=== PATIENT | female | born 1970 | race Two or more races ===

== ENCOUNTER 2020-11-04 11:28 | Emergency (ER) | payer SELFPAY ==
[~2020-11-04] VITALS: Ht 162.6 cm; Wt 63.3 kg
[2020-11-04 12:07] LABS: BILIRUBIN,URINE NEGATIVE (NEG); CLARITY,URINE CLOUDY; COLOR,URINE YELLOW; NITRITE,URINE NEGATIVE (NEG); PROTEIN,URINE NEGATIVE (NEG-TRACE); UROBILINOGEN,URINE 0.2 mg/dL (0.2 mg/dL)
[2020-11-04 12:10] LABS: BASO # 0.1 x10^3/uL (0.0-0.2); BASO % 1 % (0-3); EOS # 0.1 x10^3/uL (0.0-0.7); EOS % 2 % (0-3); HEMATOCRIT 33.5 % (36.0-47.0); HEMOGLOBIN 10.7 g/dL (12.0-15.5); LYMPH # 2.2 x10^3/uL (1.0-4.8); LYMPH % 26 % (24-48); MEAN CORPUSCULAR HEMOGLOBIN 22 pg (25-35); MEAN CORPUSCULAR HGB CONC 32 g/dL (31-37); MEAN CORPUSCULAR VOLUME 70 fL (79-100); MONO # 0.4 x10^3/uL (0.0-1.1); MONO % 5 % (0-9); NEUT # 5.8 x10^3/uL (1.8-7.7); NEUT % 67 % (31-73); PLATELET COUNT 440 x10^3/uL (140-400); RED BLOOD COUNT 4.79 x10^6/uL (3.50-5.40); RED CELL DISTRIBUTION WIDTH 17.1 % (11.5-14.5); WHITE BLOOD COUNT 8.7 x10^3/uL (4.0-11.0)
[2020-11-04] MEDS ORDERED: ONDANSETRON PF 4 MG/2 ML VIAL. IVP ONE (12:15)
[2020-11-04] MEDS ORDERED: FAMOTIDINE 20 MG/2 ML VIAL IVP ONE (12:15)
[2020-11-04] MEDS ORDERED: fentaNYL PF VIAL 100 MCG/2 ML VIAL IVP ONE ×2 (12:15→14:00)
[2020-11-04] MEDS ORDERED: IV NORMAL SALINE 1000ML BAG 1,000 ML IV ONE (12:15)
[2020-11-04 12:16] LABS: CALCIUM 9.4 mg/dL (8.5-10.1); CREATININE 0.9 mg/dL (0.6-1.0); GFR 66.5; POTASSIUM 4.1 mmol/L (3.5-5.1)
[2020-11-04 12:22] LABS: ALBUMIN 3.9 g/dL (3.4-5.0); ALBUMIN/GLOBULIN RATIO 0.9 (1.0-1.7); TOTAL BILIRUBIN 0.4 mg/dL (0.2-1.0); TOTAL PROTEIN 8.2 g/dL (6.4-8.2)
[2020-11-04 12:24] LABS: BACTERIA,URINE MODERATE /HPF (0-FEW); RBC,URINE 0 /HPF (0-2); WBC,URINE OCC /HPF (0-4)
[2020-11-04 13:10] LABS: PLT ESTIMATE INCREASED (ADEQUATE)
[2020-11-04 13:12] LABS: ANISOCYTOSIS SLIGHT; HYPOCHROMIA MOD; MICROCYTOSIS MOD; OVALOCYTES PRESENT
--- NOTE | 2020-11-04 13:14 | RAD ---
INDICATION : Reason: abd pain / Spl. Instructions: / History: COMPARISON: None TECHNIQUE: Multiple ultrasound images obtained through the abdomen in grayscale and color. FINDINGS: Liver: Echogenic appearance. Portions not well seen secondary to overlying structures obscuring. Gallbladder: There is a shadowing region at the expected location of the gallbladder. IVC: Partially distended at level of liver. Common Bile Duct: Not dilated. Pancreas: Largely obscured by bowel gas. Right Kidney: No hydronephrosis. Portion obscured by bowel gas. IMPRESSION: * No common bile duct dilation. * Liver is echogenic. Nonspecific but can be seen with fatty infiltration. * The patient reports a history of cholecystectomy. At the expected location of the gallbladder ther e is a shadowing region seen. This obscures the area and can be secondary to a loop of bowel with air in the lumen obscuring but a gallbladder with stones within could also have this ultrasound appearan ce. If additional clarification is desired CT could BE obtained to assess whether the patient has a g allbladder or not. Electronically signed by: Melquiades Johns MD (11/04/2020 1:11 PM) [id number]
[2020-11-04] MEDS ORDERED: CONTRAST GIVEN. MC PRN (13:30)
[2020-11-04] MEDS ORDERED: IOHEXOL 300 MG/ML 100ML VIAL. IV ONE (13:30)
--- NOTE | 2020-11-04 13:52 | RAD ---
INDICATION: Reason: abd pain / Spl. Instructions: DIFFICULTY HOLDING STILL , [id number] 75ml / History: . COMPARISON: Ultrasound from earlier same day TECHNIQUE: Axial CT images obtained through the abdomen and pelvis with contrast. One or more of the following individualized dose reduction techniques were utilized for this examinat ion: 1. Automated exposure control; 2. Adjustment of the mA and/or kV according to patient size; 3 . Use of iterative reconstruction technique. FINDINGS: Postcholecystectomy changes. Abdominal aorta is not aneurysmal. Prominent epicardial fat. Liver appears mildly low density. Nonspecific but can be seen with fatty infiltration. No peripancreatic fluid collection. Spleen is unremarkable. No left-sided hydronephrosis. Urinary bladder is well distended at time of exam. Uterus is visualized. No right-sided hydronephrosis. Appendix is not well seen No dilated loops of bowel to suggest obstruction. Sclerosis at sacroiliac joints which could be from degenerative changes or chronic sacroiliitis. Mild scoliotic curvature the spine as well as degenerative changes. 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 IMPRESSION: * No evidence of bowel obstruction. * Postcholecystectomy changes. The shadowing region seen on CT likely corresponds to air within the duodenum. * Urinary bladder is distended at time of exam which could be secondary to the patient not urinating recently but would correlate with symptoms to ensure that there is not a pathologic cause such as pa rtial bladder outlet obstruction Electronically signed by: Melquiades Johns MD (11/04/2020 1:50 PM) [id number]
[2020-11-04] MEDS ORDERED: LIDO:MAALOX 1:1 20 ML SINGLE DOSE. SWSW ONE (14:00)
[2020-11-04] MEDS ORDERED: PROCHLORPERAZINE 10 MG/2 ML VIAL. IV ONE (14:00)
[2020-11-04 14:30] LABS: AMPHETAMINE/METHAMPHETAMINE NEG (NEG); BARBITURATES NEG (NEG); BENZODIAZEPINES NEG (NEG); CANNABINOIDS NEG (NEG); COCAINE NEG (NEG); METHADONE NEG (NEG); OPIATES NEG (NEG); PHENCYCLIDINE NEG (NEG)
[2020-11-04 15:35] VITALS: BP 106/61
[2020-11-04] MEDS ORDERED: FAMO-63 PO (15:37)
[2020-11-04] MEDS ORDERED: DICY20TA3 PO (15:37)
--- NOTE | 2020-11-04 15:38 | PHYS DOC ---
Past Medical History Past Medical History: No Pertinent History Past Surgical History: Cholecystectomy, Smoking Status: Never Smoker Alcohol Use: None General Adult EDM: Chief Complaint: ABDOMINAL PAIN HPI: HPI: Patient is a 50 year old female who presents to the ED today complaining of 10 out of 10 generalized chronic abdominal pain that got worse in the last 2 days. Patient denies any nausea, vomiting. Denies anything specifically exacerbating or relieving her symptoms. She states the only surgery she has had was C- section. Patient reports being seen at [facility] today, labs obtained and she was sent to the ED. Review of Systems: Review of Systems: Constitutional: Denies fever or chills. [] Eyes: Denies change in visual acuity. [] HENT: Denies nasal congestion or sore throat. [] Respiratory: Denies cough or shortness of breath. [] Cardiovascular: Denies chest pain or edema. [] GI: Reports abdominal pain, denies nausea, vomiting, bloody stools or diarrhea. [] : Denies dysuria. [] Musculoskeletal: Denies back pain or joint pain. [] Integument: Denies rash. [] Neurologic: Denies headache, focal weakness or sensory changes. [] Psychiatric: Denies depression or anxiety. [] Heart Score: C/O Chest Pain: N/A Risk Factors: Risk Factors: DM, Current or recent (<one month) smoker, HTN, HLP, family history of CAD, obesity. Risk Scores: Score 0 - 3: 2.5% MACE over next 6 weeks - Discharge Home Score 4 - 6: 20.3% MACE over next 6 weeks - Admit for Clinical Observation Score 7 - 10: 72.7% MACE over next 6 weeks - Early Invasive Strategies Current Medications: Current Medications Medications (Trade) Dose Ordered Sig/Regis Start Time Stop Time Status Last Admin Dose Admin Famotidine (Pepcid Vial) 20 mg 1X ONCE 11/04/20 12:15 11/04/20 12:16 DC 11/04/20 12:25 20 MG Fentanyl Citrate (Fentanyl 2ml Vial) 50 mcg 1X ONCE 11/04/20 14:00 11/04/20 14:01 DC 11/04/20 13:57 50 MCG Info (CONTRAST GIVEN -- Rx MONITORING) 1 each PRN DAILY PRN 11/04/20 13:30 11/06/20 13:29 Iohexol (Omnipaque 300 Mg/ml) 75 ml 1X ONCE 11/04/20 13:30 11/04/20 13:31 DC 11/04/20 13:32 75 ML Multi-Ingredient Mouthwash/Gargle (Gi Cocktail) 20 ml 1X ONCE 11/04/20 14:00 11/04/20 14:01 DC 11/04/20 14:11 20 ML Ondansetron HCl (Zofran) 4 mg 1X ONCE 11/04/20 12:15 11/04/20 12:16 DC 11/04/20 12:25 4 MG Prochlorperazine Edisylate (Compazine) 10 mg 1X ONCE 11/04/20 14:00 11/04/20 14:01 DC 11/04/20 13:57 10 MG Sodium Chloride 1,000 ml @ 1,000 mls/hr 1X ONCE 11/04/20 12:15 11/04/20 13:14 DC 11/04/20 12:25 1,000 MLS/HR Allergies: Allergies: Allergies Coded Allergies Type Severity Reaction Last Updated Verified No Known Drug Allergies 11/04/20 No Physical Exam: PE: Constitutional: Well developed, well nourished, no acute distress, non-toxic appearance. [] HENT: Normocephalic, atraumatic, bilateral external ears normal, oropharynx moist, no oral exudates, nose normal. [] Eyes: PERRLA, EOMI, conjunctiva normal, no discharge. [] Neck: Normal range of motion, no tenderness, supple, no stridor. [] Cardiovascular:Heart rate regular rhythm, no murmur [] Lungs & Thorax: Bilateral breath sounds clear to auscultation [] Abdomen: Rounded abdomen. Bowel sounds normal, soft, diffuse tenderness throughout the abdomen with worse pain at the epigastric region, no masses, no pulsatile masses. [] Skin: Warm, dry, no erythema, no rash. [] Back: No tenderness, no CVA tenderness. [] Extremities: No tenderness, no cyanosis, no clubbing, ROM intact, no edema. [] Neurologic: Alert and oriented X 3, normal motor function, normal sensory function, no focal deficits noted. [] Psychologic: Affect normal, judgement normal, mood normal. [] Current Patient Data: Labs: Laboratory Tests Test 11/04/20 11:45 11/04/20 11:49 11/04/20 11:54 Urine Collection Type Unknown Urine Color Yellow Urine Clarity Cloudy Urine pH 6.0 (<5.0-8.0) Urine Specific [place] 1.010 (1.000-1.030) Urine Protein Negative mg/dL (NEG-TRACE) Urine Glucose (UA) Negative mg/dL (NEG) Urine Ketones (Stick) Negative mg/dL (NEG) Urine Blood Negative (NEG) Urine Nitrite Negative (NEG) Urine Bilirubin Negative (NEG) Urine Urobilinogen Dipstick 0.2 mg/dL (0.2 mg/dL) Urine Leukocyte Esterase Negative (NEG) Urine RBC 0 /HPF (0-2) Urine WBC Occ /HPF (0-4) Urine Squamous Epithelial Cells Mod /LPF Urine Bacteria Moderate /HPF (0-FEW) Urine Opiates Screen Neg (NEG) Urine Methadone Screen Neg (NEG) Urine Barbiturates Neg (NEG) Urine Phencyclidine Screen Neg (NEG) Urine Amphetamine/Methamphetamine Neg (NEG) Urine Benzodiazepines Screen Neg (NEG) Urine Cocaine Screen Neg (NEG) Urine Cannabinoids Screen Neg (NEG) Urine Ethyl Alcohol Neg (NEG) POC Urine HCG, Qualitative Hcg negative (Negative) White Blood Count 8.7 x10^3/uL (4.0-11.0) Red Blood Count 4.79 x10^6/uL (3.50-5.40) Hemoglobin 10.7 g/dL (12.0-15.5) L Hematocrit 33.5 % (36.0-47.0) L Mean Corpuscular Volume 70 fL (79-100) L Mean Corpuscular Hemoglobin 22 pg (25-35) L Mean Corpuscular Hemoglobin Concent 32 g/dL (31-37) Red Cell Distribution Width 17.1 % (11.5-14.5) H Platelet Count 440 x10^3/uL (140-400) H Neutrophils (%) (Auto) 67 % (31-73) Lymphocytes (%) (Auto) 26 % (24-48) Monocytes (%) (Auto) 5 % (0-9) Eosinophils (%) (Auto) 2 % (0-3) Basophils (%) (Auto) 1 % (0-3) Neutrophils # (Auto) 5.8 x10^3/uL (1.8-7.7) Lymphocytes # (Auto) 2.2 x10^3/uL (1.0-4.8) Monocytes # (Auto) 0.4 x10^3/uL (0.0-1.1) Eosinophils # (Auto) 0.1 x10^3/uL (0.0-0.7) Basophils # (Auto) 0.1 x10^3/uL (0.0-0.2) Platelet Estimate Increased (ADEQUATE) Large Platelets Occ Hypochromasia Mod Anisocytosis Slight Microcytosis Mod Ovalocytes Present Sodium Level 140 mmol/L (136-145) Potassium Level 4.1 mmol/L (3.5-5.1) Chloride Level 103 mmol/L (98-107) Carbon Dioxide Level 24 mmol/L (21-32) Anion Gap 13 (6-14) Blood Urea Nitrogen 12 mg/dL (7-20) Creatinine 0.9 mg/dL (0.6-1.0) Estimated GFR (Cockcroft-Gault) 66.5 BUN/Creatinine Ratio 13 (6-20) Glucose Level 124 mg/dL (70-99) H Calcium Level 9.4 mg/dL (8.5-10.1) Total Bilirubin 0.4 mg/dL (0.2-1.0) Aspartate Amino Transferase (AST) 16 U/L (15-37) Alanine Aminotransferase (ALT) 22 U/L (14-59) Alkaline Phosphatase 105 U/L (46-116) Total Protein 8.2 g/dL (6.4-8.2) Albumin 3.9 g/dL (3.4-5.0) Albumin/Globulin Ratio 0.9 (1.0-1.7) L Lipase 153 U/L (73-393) Ethyl Alcohol Level < 10 mg/dL (0-10) Laboratory Tests 11/04/20 11:54 Laboratory Tests 11/04/20 11:54 Vital Signs: Vital Signs Date Time Temp Pulse Resp B/P (MAP) Pulse Ox O2 Delivery O2 Flow Rate FiO2 11/04/20 14:35 68 18 119/64 (82) 97 Room Air 11/04/20 11:38 98.3 98.3 EKG: EKG: [] Radiology/Procedures: Radiology/Procedures: []PROCEDURE: ABDOMEN LTD INDICATION : Reason: abd pain / Spl. Instructions: / History: COMPARISON: None TECHNIQUE: Multiple ultrasound images obtained through the abdomen in grayscale and color. FINDINGS: Liver: Echogenic appearance. Portions not well seen secondary to overlying structures obscuring. Gallbladder: There is a shadowing region at the expected location of the gallbladder. IVC: Partially distended at level of liver. Common Bile Duct: Not dilated. Pancreas: Largely obscured by bowel gas. Right Kidney: No hydronephrosis. Portion obscured by bowel gas. IMPRESSION: * No common bile duct dilation. * Liver is echogenic. Nonspecific but can be seen with fatty infiltration. * The patient reports a history of cholecystectomy. At the expected location of the gallbladder there is a shadowing region seen. This obscures the area and can be secondary to a loop of bowel with air in the lumen obscuring but a gallbladder with stones within could also have this ultrasound appearance. If additional clarification is desired CT could BE obtained to assess whether the patient has a gallbladder or not. Electronically signed by: Reg Johns MD (11/04/2020 1:11 PM) [id number] DICTATED and SIGNED BY: REG JOHNS MD DATE: 11/04/20 [id number] 0 PROCEDURE: CT ABD PELV W/ IV CONTRST ONLY INDICATION: Reason: abd pain / Spl. Instructions: DIFFICULTY HOLDING STILL , [id number] 75ml / History: . COMPARISON: Ultrasound from earlier same day TECHNIQUE: Axial CT images obtained through the abdomen and pelvis with contrast. One or more of the following individualized dose reduction techniques were utilized for this examination: 1. Automated exposure control; 2. Adjustment of the mA and/or kV according to patient size; 3. Use of iterative reconstruction technique. FINDINGS: Postcholecystectomy changes. Abdominal aorta is not aneurysmal. Prominent epicardial fat. Liver appears mildly low density. Nonspecific but can be seen with fatty infiltration. No peripancreatic fluid collection. Spleen is unremarkable. No left-sided hydronephrosis. Urinary bladder is well distended at time of exam. Uterus is visualized. No right-sided hydronephrosis. Appendix is not well seen No dilated loops of bowel to suggest obstruction. Sclerosis at sacroiliac joints which could be from degenerative changes or chronic sacroiliitis. Mild scoliotic curvature the spine as well as degenerative changes. 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 IMPRESSION: * No evidence of bowel obstruction. * Postcholecystectomy changes. The shadowing region seen on CT likely corresponds to air within the duodenum. * Urinary bladder is distended at time of exam which could be secondary to the patient not urinating recently but would correlate with symptoms to ensure that there is not a pathologic cause such as partial bladder outlet obstruction Electronically signed by: Reg Johns MD (11/04/2020 1:50 PM) [id number] DICTATED and SIGNED BY: REG JOHNS MD DATE: 11/04/20 [id number] 0 Course & Med Decision Making: Course & Med Decision Making Pertinent Labs and Imaging studies reviewed. (See chart for details) This is a 50-year-old female patient presented to the ED today complaining of chronic generalized abdominal pain worse in the last 2 days. Urine analysis negative for infection, CBC CMP lipase with no acute findings. Limited right upper quadrant ultrasound raised question whether this patient has gallbladder not on recommended CT. CT of the abdominal pelvic was negative for any acute findings, noted for cholecystectomy. Initially patient's was interpreting. We went ahead and used the language line. Patient was discharged to home. Follow-up with GI and PCP Viraj Disclaimer: Viraj Disclaimer: This electronic medical record was generated, in whole or in part, using a voice recognition dictation system. Departure Departure Impression: Primary Impression: Abdominal pain Qualified Codes: R10.84 - Generalized abdominal pain Disposition: HOME / SELF CARE / HOMELESS Condition: STABLE Referrals: NO PCP (PCP) REMBERTO MURRAY MD follow up in one week Patient Instructions: Abdominal Pain (Nonspecific), Diet for Gastroesophageal Reflux Disease, Adult, [id number] Additional Instructions: You were evaluated in the emergency room for abdominal pain. Your CAT scan of the abdomen and pelvis as well as the ultrasound were negative for any acute findings. Your labs were negative for any acute findings. Please follow-up with the provided GI doctor and primary care doctor Scripts Famotidine (PEPCID) 20 Mg Tablet 20 MG PO DAILY, #10 TAB Prov: JUDYLATOSHA León [employer] 11/04/20 Dicyclomine Hcl (DICYCLOMINE HCL) 20 Mg Tablet 1 TAB PO TID, #30 TAB 1 Refill Prov: LATOSHA KIM [employer] 11/04/20 LATOSHA KIM APRN Nov 04, 2020 15:37
== END 2020-11-04 15:52 | disposition home or self-care (01) ==
LOC: EDBD 11:28 → ER 11:28
DX: R10.84 Generalized abdominal pain (principal); G89.29 Other chronic pain; Z90.49 Acquired absence of other specified parts of digestive tract; Z98.890 Other specified postprocedural states
CPT/HCPCS: 36415; 74177; 76705; 80053; 80307; 81001; 81025; 83690; 85025; 87086; 96361; 96374; 96375; 96376; 99285; G0480; J0780; J2405; J3010; J3490; J7030; Q9967; 87077; 87186